=== PATIENT | female | born 1975 | race Caucasian/White ===

== ENCOUNTER 2023-01-13 08:31 | Outpatient (CLI) | payer OTHER ==
[2023-01-13] MEDS ORDERED: Iopamidol 370 76% 100 ML VIAL ONE (10:51)
== END 2023-01-13 08:32 | disposition home or self-care (01) ==
LOC: CT 08:31
PROVIDERS: ATTEND Internal Medicine Hematology & Oncology
DX: I82.412 Acute embolism and thrombosis of left femoral vein (principal); D50.8 Other iron deficiency anemias; R19.00 Intra-abdominal and pelvic swelling, mass and lump, unspecified site; N85.8 Other specified noninflammatory disorders of uterus
CPT/HCPCS: 74177; Q9967

== ENCOUNTER 2023-02-17 14:46 | Outpatient (CLI) | payer OTHER ==
[~2023-02-17 14:46] MED LIST: Iopamidol 370 76% 100 ML VIAL ONE
== END 2023-02-17 14:47 | disposition home or self-care (01) ==
LOC: BICCT 14:46
PROVIDERS: ATTEND Obstetrics & Gynecology Gynecologic Oncology
DX: R19.00 Intra-abdominal and pelvic swelling, mass and lump, unspecified site (principal); R59.0 Localized enlarged lymph nodes
CPT/HCPCS: 71275